=== PATIENT | male | born 1960 | race Caucasian/White ===

== ENCOUNTER → 2024-08-16 | Outpatient (CLI) | payer OTHER, SELFPAY ==
--- NOTE | 2024-08-16 09:33 | US_ITS ---
EXAM: Ultrasound-guided paracentesis. CLINICAL HISTORY: Recurrent ascites. COMPARISON: None. TECHNIQUE: Ultrasound-guided paracentesis was performed: Following informed consent, and using standard sterile technique, a right lower quadrant abdominal paracentesis was performed under ultrasound guidance. 2% lidocaine local anesthesia was followed by placement of a 5 Bhutanese catheter into the fluid collection. Approximately 5.3 L clear lightly red tinged fluid was successfully removed. No complication was encountered, and the patient left the department in good condition, without significant complaint. US/Paracentesis with US IMPRESSION: Successful abdominal paracentesis. Reading Location: [place] [address]
[2024-08-16 10:17] VITALS: BP 132/84; PULSE 103; RESP 18; O2SAT 94
[2024-08-16] MEDS: Lidocaine 2% (20 ml mdv) 20 ML Vial (10:18)
[2024-08-16 10:32] VITALS: BP 121/80; PULSE 111; RESP 18; O2SAT 96
[2024-08-16 10:44] VITALS: BP 113/78; PULSE 106; RESP 18; O2SAT 96
== END | disposition home or self-care (01) ==
LOC: US 09:32
PROVIDERS: Referring Provider Emergency Medicine; Visit Provider Emergency Medicine
DX: R18.8 Other ascites (principal)
CPT/HCPCS: 49083

== ENCOUNTER 2024-08-30 16:53 | Emergency (ER) | payer OTHER, SELFPAY ==
[2024-08-30 16:54] VITALS: BP 103/72; PULSE 110; RESP 18; TEMP 36.1; O2SAT 95; BMI 22.6
--- NOTE | 2024-08-30 18:53 | EX.ED.DYSGE1 ---
HPI History of Present Illness Chief Complaint: Abd Pain Narrative Narrative: Chief complaint and HPI: Paracentesis. 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 Patient states for the past several weeks he has been having abdominal ascites in which he has received paracentesis for comfort. He is currently on hospice. Patient states his last paracentesis was 08/14/2024. On chart review it appears that he had approximately 5.3 L removed. Patient states since the paracentesis he has had increased abdominal ascites which is causing him discomfort. He denies true abdominal pain. He states this is usually how he feels when his ascites worsens. He states that he called hospice and they recommended him come to the emergency department for a paracentesis. He denies any fever, chills, nausea, vomiting. Review of systems: See HPI Medications: As listed on the chart Allergies: As listed on the chart PFSH: Per chart Vital signs: As listed on the chart. Reviewed. Physical exam: Gen: A&O x3, NAD Head: Normocephalic, atraumatic Eyes: No sclera icterus, conjunctiva clear ENT: Moist mucous membranes Neck: Trachea midline, full range of motion CV: RRR, no murmurs Resp: Lungs CTA BL, no w/r/c GI: Abd soft, distended and taut secondary to ascites, mildly tender to palpation, no r/r/g Musc: Full ROM, no deformity Skin: Warm, dry Neuro: Alert, oriented, grossly intact, sensation intact Psych: Cooperative, appropriate mood and affect [facility] Medical History (Updated 08/30/24 @ 18:[address] Tank Ayala, ) Malignant neoplasm of colorectal area with metastasis Allergy/AdvReac Type Severity Reaction Status Date / Time No Known Allergies Allergy Verified 08/16/24 10:56 Social History Smoking Status: Unknown if ever smoked EXAM Physical Exam Const Vital Signs: 08/30/24 16:54 08/30/24 18:58 Temperature 96.9 F L 97.3 F L Temperature Source Temporal Pulse Rate 110 H 92 Respiratory Rate 18 18 Blood Pressure 103/72 110/65 Blood Pressure Mean 82 80 Pulse Ox 95 96 Oxygen Delivery Method Room Air MDM MDM MDM Narrative Medical decision making narrative: 64-year-old male with past medical history of 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 Patient gets periodic paracentesis for symptom relief for abdominal ascites secondary to his cancer. Last paracentesis was 08/14/2024. On chart review had approximately 5.3 L removed. Patient came with a note from hospice. Jd is his hospice nurse. His phone number is [phone]. He states that the patient is here only for a paracentesis. He is not to be admitted. I personally called Jd and told him that I did not have paracentesis capabilities available at this time. I did call ultrasound to confirm this. I told him I could admit him to the hospital to have this done inpatient and likely tomorrow. He states that due to patient being on hospice they do not want him admitted. I personally spoke with the patient's updating him as well. He states that he does not want to be admitted. He states that his discomfort is secondary to the ascites and is not true abdominal pain. He declined any abdominal pain workup including labs. I did call ultrasound in order to arrange an outpatient paracentesis for tomorrow. They stated that the patient needs to call scheduling radiology. The phone number is [phone]. Patient was given this. Patient would like to discharge home. He states that he will try to schedule this outpatient. He states that they are trying to work on him getting a port so that he can do his own paracentesis at home. Patient will be discharged home. Return precautions explained. Impression: 1. Abdominal ascites 2. Request for paracentesis 3. History of metastatic rectal neoplasm with abdominal ascites Discharge Plan Triage Chief Complaint: Abd Pain ED Provider: Tank Ayala Dx/Rx/DC Orders Clinical Impression: Abdominal ascites Instructions: ED Ascites Primary Care Provider: Care Physician,No Primary Referrals: Follow-up with your primary care physician [Other] - 3-5 Days Follow-up with hospice [Other] - As soon as possible Activity Restrictions/Additional Instructions: We were unable to perform a paracentesis as this was not available in our emergency department this evening. You can schedule this outpatient by calling the scheduling radiology number at [phone]. Make sure that you call hospice and let them know as they will likely need to write you an order. Follow-up with your primary care physician. Return back to the ED if symptoms change or worsen. I did talk to your hospice nurse and they were made aware. Print Language: Sami Disposition Disposition: Home, Self Care Discharge Date/Time: 08/30/24 19:01
[2024-08-30 18:58] VITALS: BP 110/65; PULSE 92; RESP 18; TEMP 36.3; O2SAT 96
== END 2024-08-30 19:01 | disposition home or self-care (01) ==
PROVIDERS: Emergency Provider Surgery; Visit Provider Surgery
DX: R18.8 Other ascites (principal)
CPT/HCPCS: 99282

== ENCOUNTER → 2024-08-31 | Outpatient (CLI) | payer OTHER, SELFPAY ==
[2024-08-31 13:40] VITALS: BP 123/84; PULSE 111; RESP 16; TEMP 36.7; O2SAT 94
[2024-08-31 13:44] VITALS: BP 133/86; PULSE 107; RESP 16; O2SAT 95
[2024-08-31] MEDS: Lidocaine 2% (20 ml mdv) 20 ML Vial INFILT (13:45)
[2024-08-31 13:59] VITALS: BP 133/81; PULSE 105; RESP 16; O2SAT 94
[2024-08-31 14:06] VITALS: BP 122/78; PULSE 107; RESP 16; O2SAT 94
--- NOTE | 2024-08-31 14:11 | OP.PCM_ITS ---
Problems Associated Problem List Diagnoses (1) Abdominal ascites: Multi Select Codes Radiology Radiology US Procedures: 05518 Paracentesis Operative Report (Standard) Operative Information Date of Procedure: 08/31/24 Pre-Operative Diagnosis: Ascites Post-Operative Diagnosis: Ascites Surgery/Procedure Performed: Ultrasound-guided paracentesis promotional marketing analyst: No Type of Anesthesia: Local Procedure Start Time: 01:36 Procedure Stop Time: 02:05 Select all DRAINS/GRAFTS/IMPLANTS that apply: None Estimated Blood Loss: 0 Specimen collected: No Description of surgery: PROCEDURE: Ultrasound guided paracentesis ORDERING PROVIDER: Dr. Stuart INDICATION: Male, 64 years old. Ascites. PROVIDER: MEHDI Rico TECHNIQUE: The risks, benefits, and alternatives to the procedure were explained to the patient. The specific risks of bleeding, infection, and damage to bowel were detailed and accepted. Witnessed informed consent was obtained. The abdomen was ultrasonographically surveyed. An appropriate pocket of fluid was identified in the right upper quadrant of the abdomen. The skin was prepped with chlorhexidine and sterile field established. 2% lidocaine was used for local anesthetic. Using ultrasound guidance, the peritoneal cavity was accessed with a 5-Beninese paracentesis needle/catheter system. The trocar was removed. A total of 5600 ml of dark kiki colored fluid was removed from the peritoneal cavity. The catheter was removed and a sterile dressing was applied. The procedure was well tolerated. There were no immediate complications. The procedure was proctored by interventional radiologist Dr. Barriga. IMPRESSION: Successful ultrasound guided paracentesis with right upper quadrant access site. Surgical Findings: None Complications Complications: No
== END | disposition home or self-care (01) ==
LOC: US 13:14
PROVIDERS: Referring Provider Emergency Medicine; Visit Provider Emergency Medicine
DX: C20 Malignant neoplasm of rectum (principal)
CPT/HCPCS: 49083

== ENCOUNTER 2024-09-05 09:25 | Day surgery (SDC) | payer OTHER, MEDICARE, SELFPAY ==
[2024-09-05] VITALS (8 sets, daily range): BP systolic 100–120; BP diastolic 74–85; PULSE 97–105; RESP 16–18; TEMP 36.6–37.3; O2SAT 92–99; BMI 20.5
--- NOTE | 2024-09-05 10:15 | NURSING ---
During the check in process the patient requested to sign a DNR for surgery. The patient continues that if he would code during surgery, he does not want to be resuscitated. This nurse made, Dr. Mccullough, Dr. Monroy and risk control manager aware of this request and pt has cancer and on hospice.
--- NOTE | 2024-09-05 10:29 | PRE.ANES_ITS ---
ASA Classification* ASA Classification ASA Classification: 3 Assessment & Plan Anesthesia* Anesthesia Assessment Anesthesia Assessment: Discussed sedation and/or anesthesia options, risks, benefits, and alternatives with patient/parents/legal guardian/POA. Questions invited. The patient/parents/legal guardian/POA seems to understand and agrees to proceed with anesthesia plan. Reviewed the physical assessment, medical history, allergy history and patient home medications list prior to surgery/procedure/anesthetic and documented any changes. Performed airway and anesthesia risk assessments. Anesthesia Type Anesthesia Type: MAC History Source History Obtained from:: Patient and Chart Anesthesia Focused Assessment* Temperature: 99.1 F Pulse Rate: 100 Blood Pressure: 117/78 Respiratory Rate: 18 Pulse Ox: 94 Oxygen Delivery Method: Room Air Airway Assessment Mouth opens: >3 cm Mallampati Score: III Teeth Condition: Lower (Patient has lower right implant. It is tight.) and Missing (Patient is missing several molars. Rest are tight.) Neck Range of motion (ROM): Full ROM Focused Labs Anesthesia Preop lab: CBC CHEMISTRY COAG Pre-Assessment Diagnosis/Proposed Procedure Planned Operative Procedure(s): PLEUREX CATHETER, ABDOMIAL Anesthesia History Anesthesia History - customer solutions representative: Anesthesia History - customer solutions representative Hx Hospitalization No 09/01/24 15:33 Any Problems With Anesthesia No 09/01/24 15:33 Cholinesterase deficiency No 09/01/24 15:33 You/Your Family Experience No 09/01/24 15:33 fever (hyperthermia) with Relationship Recent Exposure to Contagious No 09/05/24 09:54 Disease Does patient have nerve No 09/01/24 15:33 stimulator Patient instructed to have device shut off --Does patient have Pacemaker No 09/05/24 09:54 or ICD? When Was Last Pacemaker Check QUESTION #4 FULL TEXT: You/Your Family Experience fever (hyperthermia) with Anesthesia Last Oral Intake Last Oral intake: Last Oral Intake NPO since 00:00 09/05/24 09:54 Meds taken in AM with sips of No 09/05/24 09:54 water? Meds patient instructed to take am of surgery PONV PONV - customer solutions representative: PONV - customer solutions representative Female No 09/01/24 15:33 HX of Motion Sickness No 09/01/24 15:33 HX of N/V After Surgery No 09/01/24 15:33 Non-Smoker Yes 09/01/24 15:33 Duration of Surgery greater No 09/01/24 15:33 than 60 minutes Number of Risk Factors 1 09/01/24 15:33 PONV Score Low Risk 09/01/24 15:33 Height & Weight Height & Weight: Anesthesia: Height & Weight Height 6 ft 2 in 09/05/24 09:54 Weight: 72.575 kg 09/05/24 09:54 Body Mass Index (BMI) 20.5 09/05/24 09:54 Respiratory Assessment Respiratory Assessment - customer solutions representative: Respiratory Tract Infection Hx - customer solutions representative Hx Respiratory Tract Infection No 09/01/24 15:33 STOP Sleep Apnea STOP Sleep Apnea - customer solutions representative: STOP Sleep Apnea - customer solutions representative Hx Hypertension No 09/01/24 15:33 Hx Sleep Apnea No 09/01/24 15:33 CPAP BIPAP Do you snore loudly (louder No 09/01/24 15:33 than talking or can be heard Do you often feel tired/ No 09/01/24 15:33 fatigued/ sleepy during daytime? Has anyone observed you stop No 09/01/24 15:33 breathing during sleep? STOP Results Negative 09/01/24 15:33 QUESTION #5 FULL TEXT : Do you snore loudly (louder than talking or can be heard through closed doors)? Tobacco Use History Tobacco Use History - customer solutions representative: Tobacco Use History - customer solutions representative Tobacco Use Smoking Status Never smoker 09/01/24 15:33 Hx Tobacco Use No 09/01/24 15:33 Years Smoking Packs Smoked per Day Smoking Cessation Date was within the last 15 years Hx Smoking Cessation Date Hx Smoking Cessation Counseling Hematologic Medial History Hematologic Hx - customer solutions representative: Hematologic Medical Hx - clinical documentation developer Hx of Blood Transfusion No 09/01/24 15:33 Hx of Transfusion in last 3 No 09/01/24 15:33 Months Date of Last Transfusion (if within last 3 months) Ever experience any problems No 09/01/24 15:33 with transfusion(s)? Specify any problems Hx of Preganancy in last 3 N/A 09/01/24 15:33 Months Nurse Filling Out Transfusion NBUCHER 09/01/24 15:33 & Questions: Date: 09/01/24 09/01/24 15:33 Time: 15:34 09/01/24 15:33 Patient unable to answer at this time (ie. confused, unrespo /Reproduction History /Reproductive History - customer solutions representative: /Reproductive Hx- customer solutions representative Hx Now No 09/01/24 15:33 Gestational Age (in weeks): EDC: Hx Hx Para Hx Section SAB No 09/01/24 15:33 Active Medications Active Medications: Current Medications Generic Name Dose Route Start Last Admin Trade Name Freq PRN Reason Stop Dose Admin Lactated Ringer's 1,000 mls @ 15 mls/hr 09/05/24 09:45 IV .Q48H RITU PFSH Medical History Loss of hearing Cancer History of renal disease Heartburn Gastric reflux Non-smoker History of edema Malignant neoplasm of colorectal area with metastasis Home Medications ?Medication ?Instructions ?Recorded ?Last Taken ?Type acetaminophen 650 mg rectal 650 mg W[place] Q6H PRN PAIN OR FEVER 08/31/24 Unknown History suppository bisacodyl 10 mg rectal suppository 10 mg [place] DAILY PRN constipation 08/31/24 Unknown History calcium carbonate (Tums) 300 mg PO TID PRN indigestio n 08/31/24 Unknown History famotidine 20 mg tablet (Acid 20 mg PO DAILY 08/31/24 Unknown History Controller) haloperidol 1 mg tablet 1 mg PO Q6H PRN AGGITATION 0 08/31/24 Unknown History hyoscyamine sulfate 0.125 mg 0.125 mg PO Q4H PRN CRAMP ING 08/31/24 Unknown History disintegrating tablet (Anaspaz) lorazepam 0.5 mg tablet 0.5 mg PO Q4H PRN PRN anxiet y 08/31/24 Unknown History morphine concentrate 100 mg/5 mL 10 mg PO Q8H PRN PRN pain 08/31/24 Unknown History (20 mg/mL) oral solution ondansetron HCl 8 mg tablet 8 mg PO Q12H PRN nausea Unknown History phenazopyridine 200 mg tablet 200 mg PO Q8H PRN BURNIN G URINATION 08/31/24 Unknown History (Pyridium) prochlorperazine 10 mg [place] Q6H PRN 08/31/24 Un known History saliva substitute combo no.9 15 ml PO PRN 08/31/24 Unk nown History (Biotene Dry Mouth Oral Rinse mouthwash) sennosides 8.6 mg-docusate sodium 1 tab PO DAILY PRN c onstipation 08/31/24 Unknown History 50 mg tablet (Stool Softener-Laxative) tamsulosin 0.4 mg capsule 0.4 mg PO QHS 08/31/24 Unkno wn History Allergy/AdvReac Type Severity Reaction Status Date / Time No Known Allergies Allergy Verified 09/05/24 09:50 Surgical History History of colectomy Social History Smoking Status: Never smoker Review of Systems (Anesthesia) ROS Narrative System reviewed and no additional complaints, except as documented.
--- NOTE | 2024-09-05 11:23 | PCM.HP.BLA ---
History and Physical Date of Admission: 09/05/24 Intake Vital Signs 08/31/2515:54 09/01/2513:18 Height 6 ft 2 in 6 ft 2 in Weight: 164 lb BMI 21.0 BP 118/76 Blood Pressure Location Rt brachial Position Sitting Respiration 17 Pulse 114 H Pulse Source Monitor Pulse Oximetry (%) 94 Oxygen Delivery Method room air Intake Visit Reasons: PLEUREX CATH Chief Complaint: pleurex cath Is patient in pain?: Yes (chronic from cancer on routine meds) Allergies No Known Allergies Allergy (Verified 09/01/24 14:19) Medications ?Medication ?Instructions ?Recorded ?Confirmed ?Type acetaminophen 650 mg rectal 650 mg KS Q6H PRN PAIN OR FEVER 08/31/24 09/01/24 History suppository bisacodyl 10 mg rectal suppository 10 mg KS DAILY PRN constipation 08/31/24 09/01/24 History calcium carbonate (Tums) 300 mg PO TID PRN indigestion 08/31/24 09/01/24 History famotidine 20 mg tablet (Acid 20 mg PO DAILY 08/31/24 09/01/24 History Controller) haloperidol 1 mg tablet 1 mg PO Q6H PRN AGGITATION 08/31/24 09/01/24 History hyoscyamine sulfate 0.125 mg 0.125 mg PO Q4H PRN CRAMPING 08/31/24 09/01/24 History disintegrating tablet (Anaspaz) lorazepam 0.5 mg tablet 0.5 mg PO Q4H PRN PRN anxiety 08/31/24 09/01/24 History morphine concentrate 100 mg/5 mL 10 mg PO Q8H PRN PRN pain 08/31/24 09/01/24 History (20 mg/mL) oral solution ondansetron HCl 8 mg tablet 8 mg PO Q12H PRN nausea 08/31/24 09/01/24 History phenazopyridine 200 mg tablet 200 mg PO Q8H PRN BURNING URINATION 08/31/24 09/01/24 History (Pyridium) prochlorperazine 10 mg [place] Q6H PRN 08/31/24 09/01/24 History saliva substitute combo no.9 15 ml PO PRN 08/31/24 09/01/24 History (Biotene Dry Mouth Oral Rinse mouthwash) sennosides 8.6 mg-docusate sodium 1 tab PO DAILY PRN constipation 08/31/24 09/01/24 History 50 mg tablet (Stool Softener-Laxative) tamsulosin 0.4 mg capsule 0.4 mg PO QHS 08/31/24 09/01/24 History Have you fallen in the past year?: No PFSH Medical History Malignant neoplasm of colorectal area with metastasis Social History Smoking Status: Unknown if ever smoked HPI HPI HPI: Patient is a 64-year-old male who is in hospice care for metastatic rectal cancer. The patient has recurrent ascites and would like a Pleurx catheter placed for comfort. ROS General General: Yes weight change, fatigue and colon cancer; No appetite, breast cancer or weakness HEENT HEENT: No difficulty swallowing, eye injury, eye surgery, swollen glands or hoarseness Endo Endocrine: No thyroid disease, diabetes mellitus, thyroid cancer, Hair loss, heat intolerance or cold intolerance Skin Skin: No rash or changing moles Musc Musculoskeletal: No back problems, arthritis, rheumatoid arthritis, gout or joint pain Cardio Cardiovascular: No murmur, pacemaker, heart disease, atrial fibrillation, high blood pressure, heart attack, heart stent, palpitations, shortness of breath with exertion or chest pain Psych Psychiatric: No depression, anxiety or hearing voices Resp Respiratory: Yes shortness of breath, No sleep apnea, No cough, No COPD, No asthma, No emphysema and No wheezing Gastro Gastrointestinal: Yes abdominal pain, Yes nausea or vomiting, No diarrhea, Yes constipation, No blood in stool, Yes acid reflux, No hemorrhoids, No ulcers, No gallbladder problem and No black,tarry stools Venkatesh Hematologic: No blood thinners, No blood disorders, No bleeding, No anemia and No blood clots Neuro Neurologic: No system reviewed and no additional complaints, except as documented, No as per HPI, No abnormal gait, No abnormal hearing, No abnormal movements, No abnormal speech, No behavioral changes, No burning sensations, No confusion, No convulsions, No disequilibrium, No dizziness, No localized weakness, No frequent falls, No headache(s), No lack of coordination, No loss of vision, No memory loss, No numbness, No other visual disturbances, No radicular pain, No restless legs, No sensory deficit, No syncope, No tingling, No tremor(s), No weakness and No other Exam Const General: cooperative Orientation: alert and oriented x3 HENMT Head: normal to inspection Neck Neck: normal visual inspection and full ROM Chest Chest palpation & inspection: normal inspection of the chest Resp Effort & Inspection: normal respiratory effort Auscultation: clear to auscultation bilaterally Cardio Rate: regular rate Rhythm: regular rhythm GI Inspection: distended Palpation: soft, nontender and ascites Skin General: no rashes or lesions noted Neuro General: patient alert and patient oriented x3 Extrem General: full ROM Psych Appearance: grossly normal Mental Status: mental status grossly normal Assessment and Plan Assessment and Plan (1) Abdominal ascites: Status: Acute Plan: Patient has metastatic disease and is in hospice. He has recurrent paracentesis scheduled and I would like to have a Pleurx placed for comfort. I discussed placing abdominal Pleurx catheter with the patient. I discussed the risks including but not limited to bleeding, infection, injury to underlying organs. Patient understands the risks and would like to proceed. I will put the patient on schedule for Wednesday. Landon Cronin MD Pager: [facility] [address] [place] [address], [address] [place] [address] Office: I have examined the patient and the H&P has been reviewed. There are no clinical changes since date of exam.
[2024-09-05] MEDS: Cefazolin 2 GM in 0.9% Normal Saline (100mL Bag) 100 ML IV (12:00)
--- NOTE | 2024-09-05 12:22 | PCM.POST.ANE ---
Anesthesia: Postop Eval I Current Vital Signs Temperature: 98.2 F Pulse Rate: 102 Blood Pressure: 100/74 Respiratory Rate: 16 Pulse Ox: 98 Assessment Airway patent: Yes Spontaneous unlabored respirations: Yes nausea: No Vomiting: No Anesthesia Complication: No Fluid Hydration Crystalloid volume administer (ml): 500 Total IV fluid infused: 500 Progress Note Anesthesia document: Postop Eval 1 completed: Yes
--- NOTE | 2024-09-05 12:23 | PCM.OPRPT ---
Operative Report (Standard) Operative Information Date of Procedure: 09/05/24 Pre-Operative Diagnosis: Malignant ascites Post-Operative Diagnosis: Malignant ascites Surgery/Procedure Performed: Ultrasound-guided abdominal Pleurx catheter placement data warehouse analyst: No Type of Anesthesia: Local MAC RN Documented Start/Stop Times: Operation Date: 09/05/24 11:30 Case Time Into Pre-Op 09/05/24 09:34 Out of Pre-Op 09/05/24 11:55 Anesthesia Start 09/05/24 12:00 Into Room 09/05/24 12:00 Procedure Start 09/05/24 12:07 Procedure End 09/05/24 12:15 Anesthesia End 09/05/24 12:16 Out of Room 09/05/24 12:16 Into Recovery 09/05/24 12:20 Procedure Start Time: 12:07 Procedure Stop Time: 12:15 Select all DRAINS/GRAFTS/IMPLANTS that apply: Drains Drain details: Abdominal Pleurx catheter Estimated Blood Loss: 5 Specimen collected: No Description of surgery: Patient was brought to the operating room and MAC anesthesia was induced. The right abdomen was prepped and draped in usual sterile fashion. Ultrasound was used to localize a pocket of fluid. The area was injected with local anesthetic and then an incision was made. Under ultrasound guidance a needle was placed into the fluid collection and then the guidewire was placed without resistance. The needle was removed and the serial dilators were placed over the wire and then the peel-away sheath was placed over the wire and the wire was removed. The catheter was then tunneled from the lower incision to the upper incision and then placed through the peel-away sheath. The peel-away sheath was removed. The upper incision was closed with a 3-0 Vicryl suture and then Dermabond was applied. The catheter was then connected to suction and about 800 cc of blood-tinged fluid were removed. The abdomen seems soft and nondistended. The catheter was then capped. Dressing was applied. Patient was awoken and taken to PACU in stable condition. Surgical Findings: Ascites Complications Complications: No Admit VTE Documentation VTE Mechan Device Prophylaxis: SCD's
--- NOTE | 2024-09-05 12:26 | EX.PCM.DISCH ---
Discharge Instructions Diet Discharge Diet: Light diet - advance as tolerated Activity Discharge Activity: No Restrictions and May Shower Dressing / Incision Call your doctor if your incision/area has: Continuous Slow Oozing, Sudden Increased Bleeding, Increased Pain/ Swelling, Increased Redness, Foul Smelling Discharge and Swelling at the incision site Call your doctor if you observe: Fever of 101 or Higher Remove Dressing in: 3 days Cleanse incision/area with: Soap & Water Follow Up Care Please Follow Up With: Landon Cronin MD When: as needed [phone] Test Results: Test results from this visit will be discussed in further detail at your follow-up appointment, if applicable. Discharge Plan Admission Attending Provider: Landon Cronin Primary Care Provider: Care PhysicianSmita Primary Instructions Print Language: [place] Discharge Orders/Prescriptions Prescriptions: No Action sennosides-docusate sodium [Stool Softener-Laxative] 8.6-50 mg tablet 1 tab PO DAILY PRN (Reason: constipation) famotidine [Acid Controller] 20 mg tablet 20 mg PO DAILY Tums 300 mg (750 mg) tablet,chewable 300 mg PO TID PRN (Reason: indigestion) morphine concentrate 100 mg/5 mL (20 mg/mL) solution 10 mg PO Q8H PRN PRN (Reason: pain) hyoscyamine sulfate [Anaspaz] 0.125 mg tablet,disintegrating 0.125 mg PO Q4H PRN (Reason: CRAMPING) acetaminophen 650 mg suppository 650 mg W[place] Q6H PRN (Reason: PAIN OR FEVER) haloperidol 1 mg tablet 1 mg PO Q6H PRN (Reason: AGGITATION) Patient Comments: USES DROPS lorazepam 0.5 mg tablet 0.5 mg PO Q4H PRN PRN (Reason: anxiety) prochlorperazine 10 mg [place] Q6H PRN bisacodyl 10 mg suppository 10 mg [place] DAILY PRN (Reason: constipation) tamsulosin 0.4 mg capsule 0.4 mg PO QHS Biotene Dry Mouth Oral Rinse Mouthwash 15 ml PO PRN Patient Comments: rinse WITH 15-30 ml BY MOUTH 4-6 times DAILY NEEDED for drymouth phenazopyridine [Pyridium] 200 mg tablet 200 mg PO Q8H PRN (Reason: BURNING URINATION) ondansetron HCl 8 mg tablet 8 mg PO Q12H PRN (Reason: nausea) Referrals / Follow Up: Care Physician,No Primary [Primary Care Provider] - Disposition Disposition (needs filled in before D/C Order can be placed): Home, Self Care
--- NOTE | 2024-09-05 14:06 | POSTOPAN2_ITS ---
Anesthesia Postop Eval I Sum Postop Eval Completion status Anesthesia document: Postop Eval 1 completed: Yes Anesthesia Postop Eval I Summary Anesthesia Postop Eval I Summary: Anesthesia Postop Eval I: Assessment Summary Airway patent Yes 09/05/24 12:23 [email or web address] Spontaneous unlabored Yes 09/05/24 12:23 [email or web address] [email or web address] respirations Mental status nausea No 09/05/24 12:23 [email or web address] [email or web address] Vomiting No 09/05/24 12:23 [email or web address] Anesthesia Postop Eval I: Fluid Summary Crystalloid volume administer 500 09/05/24 12:23 [email or web address] (ml) Colloids volume administered ( ml) Blood Product volume administered (ml) Total IV fluid infused 500 09/05/24 12:23 [email or web address] Anesthesia Postop Eval I: Summary Notes Anesthesia Complication No 09/05/24 12:23 [email or web address] Anesthesia Complication Comment: Post-operative progress note Anesthesia: Postop Eval II Evaluation Mental status: Awake and Calm Pain Level: 0 nausea: No Vomiting: No Complications Anesthesia Complication: No
--- NOTE | 2024-09-05 14:06 | PCM.POSTANE2 ---
Anesthesia Postop Eval I Sum Postop Eval Completion status Anesthesia document: Postop Eval 1 completed: Yes Anesthesia Postop Eval I Summary Anesthesia Postop Eval I Summary: Anesthesia Postop Eval I: Assessment Summary Airway patent Yes 09/05/24 12:23 [email or web address] Spontaneous unlabored Yes 09/05/24 12:23 [email or web address] respirations Mental status nausea No 09/05/24 12:23 [email or web address] [email or web address] Vomiting No 09/05/24 12:23 [email or web address] Anesthesia Postop Eval I: Fluid Summary Crystalloid volume administer 500 09/05/24 12:23 [email or web address] (ml) Colloids volume administered ( ml) Blood Product volume administered (ml) Total IV fluid infused 500 09/05/24 12:23 [email or web address] Anesthesia Postop Eval I: Summary Notes Anesthesia Complication No 09/05/24 12:23 [email or web address] Anesthesia Complication Comment: Post-operative progress note Anesthesia: Postop Eval II Evaluation Mental status: Awake and Calm Pain Level: 0 nausea: No Vomiting: No Complications Anesthesia Complication: No
== END 2024-09-05 13:14 | disposition home or self-care (01) ==
LOC: SDC 09:29 → AC 09:32
PROVIDERS: Visit Provider Surgery
PROC: (CPT 32550; principal; 2024-09-05 11:15)
DX: C20 Malignant neoplasm of rectum (principal); R18.0 Malignant ascites; Z79.899 Other long term (current) drug therapy
CPT/HCPCS: 32550; 00520; C1729